=== PATIENT | female | born 1955 ===

== ENCOUNTER 2021-04-03 17:55 | Emergency (ER) | payer OTHER, MEDICARE, SELFPAY ==
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
--- NOTE | ~2021-04-03 | XR_ITS ---
EXAMINATION: XR FOOT, LEFT CLINICAL INFORMATION: Pain. COMPARISON: None TECHNIQUE: AP, lateral, and oblique views of the left foot. FINDINGS: No acute fractures or malalignment. Mild multifocal degenerative osteoarthritis. Small plantar calcaneal enthesophytes. Nonspecific diffuse soft tissue swelling. No unexpected radiopaque foreign bodies. XR/XR foot LT 2V IMPRESSION: No acute fractures or malalignment. Mild multifocal degenerative osteoarthritis. Nonspecific diffuse soft tissue swelling.
[2021-04-03 18:15] VITALS: BP 217/94; PULSE 78; RESP 16; TEMP 36.6; O2SAT 99; BMI 29.1
[2021-04-03 18:36] VITALS: BP 182/80; PULSE 82; O2SAT 100
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
[2021-04-03 19:23] LABS: Imm Gran Abs Auto 0.02 X10*3/uL (0.00-0.03); Imm Gran Pct Auto 0.3 % (0.0-0.4); Lymphocytes Percent Auto 35.4 % (20-40); MANUAL DIFF FLAG SCAN; PLT CLUMP 1; SCAN SMEAR FLAG 1
[2021-04-03 19:25] LABS: Basophils Absolute Auto 0.1 X10*3/uL (0.0-0.2); Basophils Percent Auto 0.7 % (0-2); Eosinophils Absolute Auto 0.2 X10*3/uL (0.0-0.4); Eosinophils Percent Auto 2.8 % (0-4); Hematocrit 43.7 % (37.0-47.0); Hemoglobin 14.4 g/dl (12.0-16.0); Lymphocytes Absolute Auto 2.7 X10*3/uL (1.2-4.9); Mean Corpuscular Hemoglobin 28.4 pg (27.0-33.0); Mean Corpuscular Volume 86.2 fL (80.0-98.0); Mean Platelet Volume 10.5 fL (9.4-12.3); Monocytes Absolute Auto 0.4 X10*3/uL (0.1-1.2); Monocytes Percent Auto 5.7 % (2-11); Neutrophils Absolute Auto 4.2 x10*3/uL (2.0-8.3); Neutrophils Percent Auto 55.1 % (45-73); Red Blood Count 5.07 X10*6/uL (4.20-5.50); Red Cell Distribution Width 13.6 % (11.0-16.0)
[2021-04-03] MEDS: amLODIPine Besylate 5 MG TABLET PO (19:33)
[2021-04-03] MEDS: Acetaminophen 325 MG TABLET 975 MG PO (19:33)
[2021-04-03 19:41] LABS: Platelet Count 98 X10*3/uL (160-400); SLIDE REVIEW VERIFIED; White Blood Count 7.6 X10*3/uL (4.8-10.8)
[2021-04-03 19:44] LABS: Anion Gap 12 (12-20); Blood Urea Nitrogen 11 mg/dL (9-16); Calcium 9.1 mg/dL (8.4-10.2); Carbon Dioxide 26 mmol/L (22-29); Chloride 104 mmol/L (96-108); Creatinine Clr Calc Pharmacy 95.7; Estimated Glomerular Filt Rate > 60; Glucose Random 85 mg/dL (60-115); Potassium 4.3 mmol/L (3.3-5.1); Sodium 138 mmol/L (135-145)
[2021-04-03 20:12] LABS: HCG Quantitative 4 mIU/mL
[2021-04-03] MEDS: iohexoL 350 MG/ML 100 ML INFUS..BTL IV (20:43)
[2021-04-03 20:53] VITALS: BP 181/86; PULSE 65; RESP 18
[2021-04-03 21:01] VITALS: BP 181/86; PULSE 65; RESP 18; TEMP 36.9
== END 2021-04-03 22:08 | disposition home or self-care (01) ==
PROVIDERS: Physician Assistant; Emergency Provider Emergency Medicine Emergency Medical Services
DX: S39.012A Strain of muscle, fascia and tendon of lower back, initial encounter (principal); V03.10XA Pedestrian on foot injured in collision with car, pick-up truck or van in traffic accident, initial encounter; G89.11 Acute pain due to trauma; M79.672 Pain in left foot; M19.072 Primary osteoarthritis, left ankle and foot; K57.90 Diverticulosis of intestine, part unspecified, without perforation or abscess without bleeding; D69.6 Thrombocytopenia, unspecified; Y93.01 Activity, walking, marching and hiking; Y92.481 Parking lot as the place of occurrence of the external cause; Y99.9 Unspecified external cause status
CPT/HCPCS: 36415; 70450; 73620; 74177; 80048; 84702; 85025; 99284; Q9967